=== PATIENT | male | born 1985 | race Caucasian/White ===

== ENCOUNTER 2020-05-15 14:59 | Emergency (ER) | payer SELFPAY ==
[~2020-05-15] VITALS: Ht 175.3 cm; Wt 68.2 kg
[2020-05-15 15:08] VITALS: BP 152/71
[2020-05-15] MEDS ORDERED: LIDOCAINE 1%, 10ML INFIL ONE (15:30)
[2020-05-15] MEDS ORDERED: LIDOCAINE-MPF 1%, 5ML ONE (15:39)
[2020-05-15] MEDS ORDERED: BUPIVACAINE 0.25% ONE (15:39)
[2020-05-15] MEDS ORDERED: BUPIVACAINE/PF 0.5% INFIL ONE (16:00)
[2020-05-15] MEDS ORDERED: NEOSPORIN OINT. PKT 1 PACKET ONE (16:27)
== END 2020-05-15 16:51 | disposition home or self-care (01) ==
LOC: ED 16:45
DX: S61.214A Laceration without foreign body of right ring finger without damage to nail, initial encounter (principal); S61.216A Laceration without foreign body of right little finger without damage to nail, initial encounter; W23.0XXA Caught, crushed, jammed, or pinched between moving objects, initial encounter; Y93.89 Activity, other specified; Y92.410 Unspecified street and highway as the place of occurrence of the external cause; Y99.8 Other external cause status
CPT/HCPCS: 12041; 99284